=== PATIENT | female | born 1985 | race Caucasian/White ===

== ENCOUNTER 2023-06-04 06:24 | Emergency (ER) | payer MEDICAID ==
[~2023-06-04] VITALS: Ht 162.6 cm; Wt 80.0 kg
[2023-06-04 06:26] VITALS: BP 134/77; PULSE 100; RESP 20; TEMP 98.4; O2SAT 99
== END 2023-06-04 13:27 | disposition home or self-care (01) ==
LOC: ER 06:24
DX: R00.2 Palpitations (principal); F41.0 Panic disorder [episodic paroxysmal anxiety]
CPT/HCPCS: 93005; 99283